=== PATIENT | female | born 1990 | race Caucasian/White ===

== ENCOUNTER 2024-04-28 09:19 | Emergency (ER) | payer OTHER, SELFPAY ==
[2024-04-28 09:20] VITALS: BP 112/83
--- NOTE | 2024-04-28 09:55 | ED.GENMED ---
History of Present Illness
General
Chief Complaint: Musculo-Skeletal Complaint
Source: patient
Time Seen by Provider: 04/28/24 09:25
History of Present Illness
History of Present Illness:
33yoF presenting for evaluation of right ankle pain after an injury about 2 hours ago. Patient was taking her dog outside this morning when she slipped on ice and twisted her right ankle. She is presenting with pain and swelling to the lateral
ankle. No paresthesias. She denies other injuries.
Past History
Social History
Tobacco: Non-smoker
Phy Exam
General Physical Exam
General Presentation: well appearing and no apparent distress
General age: appears stated age
General Skin: warm and dry
General Habitus: normal
General Mental: alert
ENT Exam
ENT Exam: normocephalic
Pulmonary Exam
Pulmonary Exam: no respiratory distress
Neurological Exam
Neurological Exam: alert
[place] Coma Scale
Eye Opening: Spontaneous
Verbal Response: Oriented
Motor Response: Obeys Commands
GCS Total Score: 15
Musculoskeletal Exam
Musculoskeletal Exam: other (R ankle: +Tenderness and swelling overlying the lateral malleolus. No deformity. ROM intact. No tenderness in 5th metatarsal or proximal fibula. 2+ DP pulse and sensation intact. )
Skin Exam
Skin Exam: normal color, warm/dry and other (There are some minor abrasions to the anterior mancia. Skin overlying the lateral malleolus is intact. )
Psychiatric Exam
Psychiatric Exam: normal mood/affect
Course
Orders/Labs/Results
Orders:
Orders
04/28/24 09:23
CR Ankle - Right Min 3 Views * Urgent
Comment:
Reason For Exam: injury, pain
04/28/24 09:32
Splints/Slings/Crut- Treatment ONCE
Crutches: Yes
Location: Right
Type of Splint: Short Leg
04/28/24 09:59
Tetanus/Diphth/Acelpertussis [Adacel] 0.5 ml IM .ONCE ONE
Vital Signs
Initial and Last Documented VS:
Initial Vital Signs
Temp Pulse Resp BP Pulse Ox
98.3 F 77 16 112/83 96
04/28/24 09:20 04/28/24 09:20 04/28/24 09:20 04/28/24 09:20 04/28/24 09:20
Last Documented Vital Signs
Temp Pulse Resp BP Pulse Ox
98.3 F 77 16 112/83 96
04/28/24 09:20 04/28/24 09:20 04/28/24 09:20 04/28/24 09:20 04/28/24 09:20
MDM/Problems Addressed
Differential Diagnosis Includes:
33yoF here with R ankle pain after an injury this morning. +Swelling and tenderness to the lateral malleolus. No deformity. Abrasions noted to the anterior mancia. Skin over the lateral malleolus is intact. RLE is neurovascularly intact. Differential
diagnosis includes sprain vs. fracture
X-rays of R ankle obtained which reveal a nondisplaced distal fibular fracture. Patient was placed in a short leg splint by nursing staff. Neurovascular status unchanged after splint placement. Supportive care discussed and advised NWB. Patient
instructed to call orthopedics on Tuesday to schedule a f/u appt. She was discharged in stable condition.
*Critical Care Note
Total Time (30-74mins, 75-104mins- exclusive of procedures): Not Applicable
ED Attending Note
-
Portions of this chart may have been created with voice recognition software.� Occasional wrong word or��sound alike� substitutions may have occurred due to the inherent limitations of voice recognition software.
Discharge Plan
Departure
Patient Disposition: Home (Routine Discharge)
Date of Disposition: 04/28/24
Time of Disposition: 10:16
Patient with high blood pressure during this ER visit?: No
Discharge Problem:
Closed fracture of distal end of right fibula
Instructions: Ankle Fracture (DC), Splint Care
Prescriptions:
No Action
No Current Medications
ciprofloxacin [Cipro] 500 MG/5 ML suspension,microcapsule recon
500 mg PO BID Qty: 10 0RF
phenazopyridine 200 MG tablet
200 mg PO TID PRN (Reason: urinary problems) Qty: 6 0RF
Referrals:
Sarahy Null PA [Family Provider] -
Kraig Baird MD [Active] -
Activity Restrictions/Additional Instructions:
Keep splint in place and do not get wet. Do not bear weight until seen by orthopedics. Elevate ankle and take Tylenol/ibuprofen as needed for pain.
Please call on Tuesday to schedule a follow-up with orthopedics.
Interventions
Interventions:
*Risk Screen - Suicide Last Done: 04/28/24 09:20
*General Assessment Last Done: 04/28/24 09:20
*Neglect/Abuse Screening Last Done: 04/28/24 09:20
ED- Fall Risk Assessment Last Done: 04/28/24 10:33
*ED COVID-19 Vaccine History Last Done: 04/28/24 09:20
*Nursing Disposition Last Done: 04/28/24 10:33
ED-Musculoskeletal Assessment Last Done: 04/28/24 10:32
Discharge Date and Time
Discharge Date/Time: 04/28/24 10:33
Print Language: MARTINIQUAIS
[2024-04-28] MEDS: ADACEL 0.5 ML IM (10:18)
== END 2024-04-28 10:33 | disposition home or self-care (01) ==
LOC: EMR 09:19
PROVIDERS: EMERGENCY PHYSICIAN Emergency Medicine; FAMILY PHYSICIAN Physician Assistant Medical
DX: S82.831A Other fracture of upper and lower end of right fibula, initial encounter for closed fracture (principal); S80.811A Abrasion, right lower leg, initial encounter; W00.0XXA Fall on same level due to ice and snow, initial encounter; X50.1XXA Overexertion from prolonged static or awkward postures, initial encounter; Z23 Encounter for immunization
CPT/HCPCS: 29515; 90471; 99283; 73610; 90715